=== PATIENT | male | born 1955 | race Caucasian/White ===

== ENCOUNTER 2025-10-16 20:37 | Observation (INO) | payer MEDICARE ==
[2025-10-16] MEDS ORDERED: Lidocaine 1% PF 5 ML VIAL ONE (23:44)
[2025-10-16] MEDS ORDERED: CEFAZOLIN 2 GM VIAL ONE (23:52)
[2025-10-17 07:35] VITALS: BP 146/75; TEMP 97.7
[2025-10-17] MEDS ORDERED: HYDROcodone/Acetaminophen 5/325 mg Tablet PO PRN (08:11)
[2025-10-17] MEDS ORDERED: Communication Order-Pharmacy FS SCH (08:15)
[2025-10-17] MEDS: TETANUS, DIPHTHERIA TOX,ADULT (TDVAX) 0.5 ML VIAL IM ONE (10:48)
[2025-10-17] MEDS ORDERED: CEFAZOLIN 2 GM VIAL ONE (11:15)
[2025-10-17 12:15] LABS: Calc. Creatinine Clearance 0.0 mL/min (70-130)
[2025-10-17] MEDS ORDERED: Lidocaine 1% (PF) 30 ML VIAL ONE (13:01)
[2025-10-18] MEDS ORDERED: FLU (Fluad Triv) 25-26 (65UP)PF 45 MCG/0.5 ML Syringe IM ONE (09:00)
[2025-10-18] MEDS ORDERED: PNEUMOC 20-VAL CONJ-DIP CRM/PF 0.5 ML SYRINGE IM ONE (09:00)
== END 2025-10-17 15:30 | disposition home or self-care (01) ==
LOC: ERS 20:37 → ERHOLD 10-17 05:14
PROVIDERS: ADMIT Orthopaedic Surgery; ATTEND Orthopaedic Surgery
DX: S62.631B Displaced fracture of distal phalanx of left index finger, initial encounter for open fracture (principal); W29.8XXA Contact with other powered hand tools and household machinery, initial encounter; R73.03 Prediabetes; N40.0 Benign prostatic hyperplasia without lower urinary tract symptoms
CPT/HCPCS: 64450; 82565; 96374; 96376; 99284; G0378; J2003; TRAUM; 36415